=== PATIENT | female | born 1970 | race Caucasian/White ===

== ENCOUNTER 2019-03-25 11:24 | Outpatient (CLI) | payer MEDICARE, MEDICAID, SELFPAY ==
--- NOTE | 2019-03-25 11:36 | EST_ITS ---
Patient Info Name: Delia Lowe Age: 48 years : 1970 Gender: Female Ht: 59 in Wt: 208 lbs BSA: 2.04 m2 Exam Date: 03/25/2019 12:26 PM Exam Location: [facility] Patient Status: Outpatient Admit Date: 03/25/2019 Staff Ordering Physician: Mauricio Christopher DO Attending Provider: Mauricio Christopher DO Exam Type: CA stress dileep w NM Summary 1. 1. Negative lexiscan stress test for ischemic ST changes by ECG criteria. 2. 2. Stable hemodynamics throughout the test. 3. 3. Nuclear scan to follow and will be reported separately. Please correlate with it. 4. 4. Patient informed of the above results. Protocol: LEXISCAN Stress ECG Details Stage: REST Duration (min): 0 min : 55 sec HR (bpm): 83 SBP (mmHg): 112 DBP (mmHg): 78 Stage: REST Duration (min): 9 min : 18 sec HR (bpm): 85 SBP (mmHg): 112 DBP (mmHg): 78 Stage: STAGE 1 Duration (min): 0 min : 16 sec HR (bpm): 82 SBP (mmHg): 112 DBP (mmHg): 78 Stage: RECOVERY Duration (min): 0 min : 43 sec HR (bpm): 93 SBP (mmHg): 112 DBP (mmHg): 78 Stage: RECOVERY Duration (min): 1 min : 43 sec HR (bpm): 93 SBP (mmHg): 105 DBP (mmHg): 63 Stage: RECOVERY Duration (min): 2 min : 43 sec HR (bpm): 93 SBP (mmHg): 105 DBP (mmHg): 63 Stage: RECOVERY Duration (min): 3 min : 43 sec HR (bpm): 89 SBP (mmHg): 105 DBP (mmHg): 63 Stage: RECOVERY Duration (min): 4 min : 43 sec HR (bpm): 92 SBP (mmHg): 112 DBP (mmHg): 63 Stage: RECOVERY Duration (min): 5 min : 43 sec HR (bpm): 90 SBP (mmHg): 107 DBP (mmHg): 65 Stage: RECOVERY Duration (min): 6 min : 4 sec HR (bpm): 90 SBP (mmHg): 107 DBP (mmHg): 65 Rest HR: 85 bpm Peak HR: 95 bpm Rest Sys BP: 112 mmHg Peak Sys BP: 112 mmHg Max Pred HR: 170 bpm % Max Pred HR: 56 % Target HR: 145 bpm Max RPP: 10,640 bpm*mmHg Termination Reason: Completed protocol Cardiac Symptoms: None Total Time: 0 min : 16 sec Rest Navarrete BP: 78 mmHg Peak Navarrete BP: 63 mmHg Total Dose: 0.4 mg Resting ECG Sinus rhythm. Stress ECG No ST changes. Arrhythmias None. Report Signatures
--- NOTE | 2019-03-25 11:36 | ECHO_ITS ---
Patient Info Name: Delia Lowe Age: 48 years : 1970 Gender: Female Ht: 59 in Wt: 201 lbs BSA: 2.00 m2 HR: 90 bpm BP: 134 / 86 mmHg Heart Rhythm: Sinus Rhythm Technical Quality: Fair Exam Date: 03/25/2019 1:38 PM Exam Location: [facility] Patient Status: Outpatient Admit Date: 03/25/2019 Staff Ordering Physician: Mauricio Christopher DO Clinical Trials Specialist: Leroy Shin RDCS Attending Provider: Mauricio Christopher DO Exam Type: CA echo doppler color flow Study Info Complete two-dimensional, color flow and Doppler transthoracic echocardiogram is performed. History/Risk Factors Dyspnea. Summary 1. Left ventricular chamber dimension is normal. 2. Left ventricular systolic function is normal, estimated at 60-65%. 3. There is mildly increased left ventricular wall thickness. 4. The left ventricular diastolic function is grade I diastolic dysfunction. 5. E/e' 10 is mildly elevated. Left Ventricle E/e' 10 is mildly elevated. Left ventricular chamber dimension is normal. Left ventricular systolic function is normal, estimated at 60-65%. There is mildly increased left ventricular wall thickness. The left ventricular diastolic function is grade I diastolic dysfunction. Right Ventricle Right ventricular chamber dimension is normal. Right ventricular systolic function is normal. Left Atria Left atrial chamber dimension is normal. Right Atria Right atrial chamber dimension is normal. Aortic Valve The aortic valve is trileaflet. There is no aortic valve stenosis. There is no aortic valve regurgitation. Pulmonic Valve There is no pulmonic regurgitation. Mitral Valve There is no mitral valve stenosis. There is no mitral valve regurgitation. Tricuspid Valve There is no tricuspid valve regurgitation. Pericardium/Pleural There is no pericardial effusion. Inferior Vena Cava Normal inferior vena cava with >50% collapse upon inspiration consistent with normal right atrial pressure, 5 mmHg. Aorta The aortic root size at the sinus of Valsalva is normal. Left Ventricular Outflow Tract Name Value Normal LVOT 2D LVOT Diameter 2.0 cm LVOT Doppler LVOT Peak Velocity 106 cm/s LVOT Peak Gradient 4 mmHg LVOT Mean Gradient 2 mmHg LVOT VTI 17 cm LVOT VTI/AV VTI Ratio 0.9 LVOT Stroke Volume 54 ml Mitral Valve Name Value Normal MV Doppler MV Decel Hamilton 172 cm/s2 MV PHT 90 ms MV Area (PHT) 2.5 cm2 4.0-5.0 MV Diastolic Function MV E Peak Velocity 53 cm/s MV A Peak Velocity
== END 2019-03-25 11:25 | disposition home or self-care (01) ==
LOC: CHSIMG 11:27
PROVIDERS: Visit Provider Internal Medicine Cardiovascular Disease
DX: R07.9 Chest pain, unspecified (principal); R06.09 Other forms of dyspnea
CPT/HCPCS: 78452; 93017; 93306; A9502; J2785

== ENCOUNTER 2023-11-22 14:19 | Outpatient (RCR) | payer OTHER, SELFPAY ==
--- NOTE | 2023-11-22 15:05 | PTOPEVAL1 ---
Assessment and note entered by Crow Preston Evaluation Information Assessment Status Evaluation Diagnosis Multiple sclerosis ICD-10 Condition Codes (PT) M25.571 Onset 11/21/2009 Subjective Information Pt. reports she has been using the same power wheelchair for over 14 years. She states that her current power wheelchair cannot run and has broken parts. She reports that she cannot walk long distances and relies on her chair to get into the community. She states that she has a caregiver at home 6 hours a day. She states that she can walk short distances. She reports that she has had several falls in the past 6 months, however when talking with her caregiver she reports that it has been almost a year since the patient last fell. Reported Pain Level Pain Score 7: Self Report Assessment PT Clinical Summary Objective data is provided on the Seating/Mobility Evaluation form. Refer to assessment on the form regarding patient status. These treatments will address the objective and functional deficits as defined above. The patient will be advanced safely and appropriately in order for the patient to progress towards his/her prior level of function. Additional exercises will be introduced and as well as a comprehensive home exercise program upon discharge, if needed, ?to ensure carryover of functional gains achieved in the clinic. This treatment plan has been reviewed and agreement upon by the patient.
== END 2023-11-22 15:00 | disposition home or self-care (01) ==
LOC: CHSPT 14:19
PROVIDERS: Visit Provider Family Medicine
DX: M79.671 Pain in right foot (principal); L02.412 Cutaneous abscess of left axilla; G35 Multiple sclerosis
CPT/HCPCS: 97162

== ENCOUNTER 2025-02-04 15:33 | Outpatient (CLI) | payer OTHER, SELFPAY ==
--- NOTE | ~2025-02-04 | XR_ITS ---
XR ankle LT min 3V 02/04/2025 15:58 INDICATION: Left ankle pain. PROCEDURE: 4 views left ankle COMPARISON: No prior studies for comparison. FINDINGS: Fracture, dislocation or subluxation is not identified. There is an old avulsion fracture distal aspect of the fibula. Mild soft tissue swelling laterally. Small degenerative calcaneal enthesophyte. No foreign bodies are identified. IMPRESSION: 1: NO ACUTE BONE OR JOINT ABNORMALITY IDENTIFIED. Reviewed, dictated and finalized at location O. 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
--- NOTE | ~2025-02-04 | XR_ITS ---
[XR ribs LT 2V w CXR 2V ] INDICATION: Left rib pain TECHNIQUE: Frontal projection of the upper left ribs, frontal projection of the lower left ribs, oblique projection of all the left ribs, frontal and lateral inspiratory chest x-ray for interpretation. FINDINGS: There are no displaced rib fractures identified. There are no soft tissue abnormality seen. There is bibasilar atelectasis. No focal pneumonia, edema, significant effusion or pneumothorax. IMPRESSION: 1:No acute displaced rib fractures. 2:Bibasilar atelectasis. Reviewed, dictated and finalized at location O. DINNER
--- OUTSIDE RECORDS SUMMARY | 2025-02-04 15:39 | XMS_ITS | Patient Health Record ---
Author Organization [facility] Address [address] [place], [place] [id number] Care Team Providers Care Office Communication Professor Name Role Phone ARNALDO CHILDRESS Unavailable [phone] Hao Banks Unavailable Unavailable Reason For Referral No Information Medications Medication SIG (Take, Route, Frequency, Duration) Notes Start Date End Date Status sennosides, LONGTERM 25 MG Oral Tablet ORAL sennosides, LONGTERM 25 MG Oral TabletOriginal Medicationsennosides, LONGTERM 25 MG Oral Tablet *Reorder from [facility] for eRx and Interaction Alerts* 3 Active Docusate Sodium 250 MG Oral Capsule ORAL docusate sodium 250 MG Oral CapsuleOriginal Medicationdocusate sodium 250 MG Oral Capsule *Reorder from [facility] for eRx and Interaction Alerts* 3 Active topiramate 25 MG Oral Capsule ORAL topiramate 25 MG Oral CapsuleOriginal Medicationtopiramate 25 MG Oral Capsule *Reorder from [facility] for eRx and Interaction Alerts* 3 Active pregabalin 100 MG Oral Capsule [Lyrica] ORAL pregabalin 100 MG Oral Capsule [Lyrica]Original Medicationpregabalin 100 MG Oral Capsule [Lyrica] *Reorder from [employer] for eRx and Interaction Alerts* 3 Active pregabalin 300 MG Oral Capsule [Lyrica] ORAL pregabalin 300 MG Oral Capsule [Lyrica]Original Medicationpregabalin 300 MG Oral Capsule [Lyrica] *Reorder from [facility] for eRx and Interaction Alerts* 3 Active acetaminophen 325 MG / hydrocodone bitartrate 10 MG Oral Tablet ORAL acetaminophen 325 MG / hydrocodone bitartrate 10 MG Oral TabletOriginal Medicationacetaminophen 325 MG / hydrocodone bitartrate 10 MG Oral Tablet *Reorder from [facility] for eRx and Interaction Alerts* 3 Active aspirin 81 MG Oral Tablet ORAL aspirin 81 MG Oral TabletOriginal Medicationaspirin 81 MG Oral Tablet *Reorder from [facility] for eRx and Interaction Alerts* 3 Active glipiZIDE 5 MG Oral Tablet ORAL glipizide 5 MG Oral TabletOriginal Medicationglipizide 5 MG Oral Tablet *Reorder from [facility] for eRx and Interaction Alerts* 3 Active 24 HR darifenacin 15 MG Extended Release Oral Tablet [Enablex] ORAL 24 HR darifenacin 15 MG Extended Release Oral Tablet [Enablex]Original [id number] HR darifenacin 15 MG Extended Release Oral Tablet [Enablex] *Reorder from [facility] for eRx and Interaction Alerts* 3 Active atorvastatin 40 MG Oral Tablet ORAL atorvastatin 40 MG Oral TabletOriginal Medicationatorvastatin 40 MG Oral Tablet *Reorder from [facility] for eRx and Interaction Alerts* 3 Active diazepam 10 MG Oral Tablet [Valium] ORAL diazepam 10 MG Oral Tablet [Valium]Original Medicationdiazepam 10 MG Oral Tablet [Valium] *Reorder from [facility] for eRx and Interaction Alerts* 3 Active ergocalciferol 1.25 MG Oral Capsule ORAL ergocalciferol 1.25 MG Oral CapsuleOriginal Medicationergocalciferol 1.25 MG Oral Capsule *Reorder from [facility] for eRx and Interaction Alerts* 3 Active Social History Social History Additional Details Category Social Info Options Details Migrated Social History Migrated Social History History of tobacco use : Current every day smoker , Smoking Status : Current every day smoker Plan Of Treatment No Information Insurance Providers Payer Name Payer Address Payer Phone Subscriber Number Group Number Insured Name Patient Relationship to Insured Coverage Start Date Coverage End Date Medicare Part B [facility] [address] [place] [phone] [id number] ARON COREAS Self - patient is the insured
--- OUTSIDE RECORDS SUMMARY | 2025-02-04 15:39 | XMS_ITS | Clinical Summary ---
Author Organization [facility] Address [address] [place] [address] Care Team Providers Care Stoner Hand Name Role Phone Marry Arndt MD Primary Care Provider Allergies Active Allergy Reactions Criticality Noted Date Comments Fluoxetine Marax Unknown 05/01/2024 Penicillins Medications nitroglycerin (NITROSTAT) 0.[address] 1 tablet by sublingual route at the 1st sign of attack; may repeat every 5 min until relief; if pain persists after 3 tablets in 15 min, prompt medical attention is recommended 0 0 3 Active aspirin 81 mg tablet take 1 tablet (81MG) by oral route every day 0 2 Active Additional Information Patient not taking.Reported on 10/24/2024 vitamin E (AQUASOL E) 1,000 unit capsule Take 1 capsule (1,000 Units total) by mouth daily Active cholecalcifero l (VITAMIN D3) 1,000 unit capsule Take 9 capsules (9,000 Units total) by mouth daily. 1 capsule 7 Active Additional Information Patient taking differently: 5,000 Unitsoral Daily, Reported on 10/24/2024 omeprazole (PriLOSEC) 40 mg capsule Take 1 capsule (40 mg total) by mouth daily 5 Active famotidine (PEPCID) 20 mg tablet Take 1 tablet (20 mg total) by mouth 2 (two) times a day 360 Zantac Active OneTouch Verio test strips strip as needed 5 Active gabapentin (NEURONTIN) 600 mg tablet Take 1 tablet (600 mg total) by mouth 3 (three) times a day 5 Active OneTouch Delica Plus Lancet 33 gauge misc 5 Active naproxen (ANAPROX DS) 550 mg tablet as needed 5 Active SUMAtriptan (IMITREX) 50 mg tablet Take 1 tablet (50 mg total) by mouth as needed 5 Active hydrOXYzine (ATARAX) 25 mg tablet Take 1 tablet (25 mg total) by mouth nightly Active dicyclomine (BENTYL) 20 mg tablet Take 1 tablet (20 mg total) by mouth every 6 (six) hours 5 Active ondansetron (ZOFRAN) 4 mg tablet Take 1 tablet (4 mg total) by mouth every 8 (eight) hours as needed 5 Active Mounjaro 7.5 mg/0.5 mL pen injector injection Inject 0.5 mL (7.5 mg total) under the skin every 7 days 5 Active atorvastatin (LIPITOR) 80 mg tablet Take 1 tablet (80 mg total) by mouth daily 5 Active escitalopram (LEXAPRO) 20 mg tablet Take 1 tablet (20 mg total) by mouth daily 5 Active HYDROcodone-ac etaminophen (NORCO) 7.5-325 mg per tablet Take 1 tablet by mouth 3 times a day 5 Active lamoTRIgine (LaMICtal) 150 mg tablet Take 1 tablet (150 mg total) by mouth daily 5 Active baclofen (LIORESAL) 10 mg tablet Take 1 tablet (10 mg total) by mouth nightly Active modafiniL (PROVIGIL) 200 mg tabletIndicati ons:Multiple sclerosis TAKE 1 TABLET BY MOUTH EVERY MORNING AND 1/2 TABLET AT NOON 135 tablet 3 5 Active modafiniL (PROVIGIL) 200 mg tabletIndicati ons:Multiple sclerosis TAKE 1 TABLET BY MOUTH EVERY MORNING AND 1/2 TABLET AT NOON 135 tablet 3 5 01/24/20 25 Discontin ued(Reord er) Active Problems Problem Noted Date Diagnosed Date Obstructive sleep apnea, adult 10/25/2024 Morbid obesity with BMI of 40.0-44.9, adult 03/17 Assessment & Plan (04/10/2019 4:05 PM SENIOR VICE PRESIDENT AND CHIEF INFORMATION OFFICER): Exercise Weight loss encouraged. Lumbosacral radiculopathy 02/02/2018 Assessment & Plan (04/10/2019 4:04 PM SENIOR VICE PRESIDENT AND CHIEF INFORMATION OFFICER): Need MRI of lumbosacral spine images to review Lyrica 300 mg b.i.d. Assessment & Plan (10/05/2018 3:59 PM CDT): Lyrica 300mg daily Discussed weight loss and nutrition Assessment & Plan (02/02/2018 6:58 AM SENIOR VICE PRESIDENT AND CHIEF INFORMATION OFFICER): Need MRI of lumbosacral spine report/images to review Pain management evaluation Lyrica 300 mg b.i.d. High risk medication use 06/05/2017 Vitamin D deficiency 06/05/2017 Encounter for screening for other viral diseases 06/05/2017 Generalized tonic-clonic seizure 12/27/2016 Assessment & Plan (04/10/2019 4:01 PM SENIOR VICE PRESIDENT AND CHIEF INFORMATION OFFICER): Topamax 300mg daily Resume Lamictal. Lamictal 50 mg twice a day prescribed. Assessment & Plan (10/05/2018 3:59 PM CDT): Topamax 300mg daily Lamictal increased per patient to 100mg BID per psychiatry Assessment & Plan (02/02/2018 6:55 AM SENIOR VICE PRESIDENT AND CHIEF INFORMATION OFFICER): Topamax 100 mg AM/200 mg PM Lamictal 50 mg BID Assessment & Plan (06/05/2017 11:33 AM CDT): Topamax 100 mg AM/200 mg PM Lamictal 50 mg BID Keppra 500 mg BID. If Lamictal dose raised by psychiatrist, Keppra dose could be weaned. Assessment & Plan (12/31/2016 9:16 PM SENIOR VICE PRESIDENT AND CHIEF INFORMATION OFFICER): Topamax 100 mg AM/200 mg PM Lamictal 50 mg BID Keppra 500 mg BID. If Lamictal dose raised by psychiatrist, Keppra dose could be weaned. 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 Assessment & Plan (04/10/2019 4:01 PM SENIOR VICE PRESIDENT AND CHIEF INFORMATION OFFICER): Lamictal 50 mg BID restart Off Geodon Psychiatry follow-up Assessment & Plan (10/05/2018 4:00 PM CDT): Geodon 40mg now daily per patient Lamictal 100mg BID per patient Continue following psychiatry Assessment & Plan (02/02/2018 6:56 AM SENIOR VICE PRESIDENT AND CHIEF INFORMATION OFFICER): Lamictal 50 mg BID Geodon Psychiatry follow-up Assessment & Plan (06/05/2017 11:34 AM CDT): Lamictal 50 mg BID Geodon Continue per Psychiatry follow-up Assessment & Plan (12/27/2016 1:36 PM SENIOR VICE PRESIDENT AND CHIEF INFORMATION OFFICER): Lamictal 50 mg BID Geodon Psychiatry follow-up Gastroesophageal reflux disease without esophagi tis 01/29/2015 Diarrhea 11/18/2013 Migraine with aura and witho ut status migrainosus, not intractable 08/07/2013 Overview (2016): Migraine with aura Assessment & Plan (04/10/2019 4:00 PM SENIOR VICE PRESIDENT AND CHIEF INFORMATION OFFICER): Topamax 100 mg in morning and 200 mg at night Fioricet as needed Assessment & Plan (10/05/2018 3:59 PM CDT): She is on Topamax 300mg nightly. We discussed changing her dose to 100mg AM and 200mg PM for possible better coverage of her migraines Discussed CGRP receptor medications. She wanted to wait at this time Assessment & Plan (02/02/2018 6:54 AM SENIOR VICE PRESIDENT AND CHIEF INFORMATION OFFICER): Topamax 100 mg in morning and 200 mg at night Fioricet with codeine p.r.n. Assessment & Plan (06/05/2017 11:34 AM CDT): Topamax 100 mg AM/200 mg PM Fioricet with codeine prn Assessment & Plan (12/31/2016 9:12 PM SENIOR VICE PRESIDENT AND CHIEF INFORMATION OFFICER): Topamax 100 mg AM/200 mg PM Fioricet with codeine prn Diabetes mellitus 06/29/2013 Overview (05/18/2016): DM (diabetes mellitus) Atherosclerosis of coronary artery 06/29/2013 Overview (2016): CAD (coronary artery disease) Hypercholesterolemia 06/29/2013 Overview (2016): Hypercholesteremia Hinojosa's esophagus 08/20/2010 Hypertension 07/02/2008 Neurogenic bowel 07/02/2008 Neurogenic bladder 07/02/2008 Assessment & Plan (04/10/2019 4:04 PM SENIOR VICE PRESIDENT AND CHIEF INFORMATION OFFICER): Solifenacin 10 mg daily Assessment & Plan (10/05/2018 4:00 PM CDT): Vesicare 10mg daily Assessment & Plan (02/02/2018 6:58 AM SENIOR VICE PRESIDENT AND CHIEF INFORMATION OFFICER): VESIcare 10 mg daily Multiple sclerosis, relapsing-remitting 12/28/19 Overview (05/25/2017): Description: - appears stable on Betaseron. Labs as noted above. Nabferon (-) 12/28/07. Last MRI 07-30-07. (07-02-08) Assessment & Plan (04/10/2019 3:59 PM SENIOR VICE PRESIDENT AND CHIEF INFORMATION OFFICER): Tecfidera 240 mg twice a day. Became AYDEE virus antibody positive with index 3.76 on Tysabri in May 2017. Ocrevus was recommended, but patient declined. Provigil 200 mg a.m. and 100 mg 3:00 p.m. Baclofen Lyrica 300 mg twice a day Vit D3 6000 IU daily Chronically high WBC; hematology evaluation in past. MRI of the brain and cervical spine ordered for 3rd time. Importance to adherence to MRI imaging discussed especially since at risk for rebound activity off Tysabri. Assessment & Plan (10/05/2018 4:01 PM CDT): Tecfidera. Reviewed risks including PML and hepatotoxicity. Lab work today. Discussed eating before taking medication to help with GI symptoms MRI of the brain and cervical spine reordered Baclofen 20mg TID prn modafanil 200mg daily prn for fatigue Left resting hand/finger splint for 3rd and 4th fingers for night time Exercise encouraged and discussed as tolerated as well as good nutrition discussed Power wheelchair is medically necessary for Delia to complete ADLs outside the home due to motor fatigue from MS as well as lower back pain with lumbosacral radiculopathy. Follow up with Dr. Montoya in 6 months Assessment & Plan (02/02/2018 6:53 AM SENIOR VICE PRESIDENT AND CHIEF INFORMATION OFFICER): Tecfidera 240 mg twice a day. Became AYDEE virus antibody positive on Tysabri in May 2017. Ocrevus was recommended, but patient declined. Provigil, Baclofen Lyrica 300 mg twice a day Vit D3 6000 IU daily Exercise, weight loss Chronically high WBC; hematology evaluation in past. Assessment & Plan (06/05/2017 11:29 AM CDT): Long discussion regarding MS, risk of disease and Ocrevus. Discussed Ocrevus. Risks include potential infusion reactions, potential increase risk of infection including respiratory, herpes and PML, potential increased risk of malignancy such as breast cancer. Patient risk adversive and very tearful regarding infusion therapy. Really wants to discuss option of oral therapy. She has diabetes, so Gilenya not a great option. Risks and benefits of Tecfidera discussed including flushing, n/v/d, hepatotoxicity, harm, low white count, and serious infection including PML. She would like to continue with Tecfidera if OK with Dr. Montoya. Can increase baclofen to 15-20mg due to finger curling. Please let us know in 1- 2 weeks to discuss if it is helping. Blood work ordered for today Assessment & Plan (12/31/2016 9:16 PM SENIOR VICE PRESIDENT AND CHIEF INFORMATION OFFICER): Darwin. Risks discussed incl PML. Provigil, Vesicare Baclofen, Lyrica Vit D3 6000 IU daily Exercise, weight loss Chronically high WBC; hematology evaluation in past. MRI brain May 2018 Resolved Problems Problem Noted Date Diagnosed Date Resolved Date Other fatigue 06/05/2017 02/02/2018 Anaclitic depression 07/02/2008 020 Encounters Date Type Department Care Team Description 01/27/2025 12:00 PM SENIOR VICE PRESIDENT AND CHIEF INFORMATION OFFICER Infusion [facility] [address] [address] Multiple sclerosis, relapsing-remitting (Primary Dx) 01/23/2025 Telephone [facility] in [address] [address] Nick Dobson [facility] 01/27/2025 01/20/2025 Telephone [facility] [address] [facility] [address] [address] Arely Vila, shrimper Reminder- [facility] 01/08/2025 Telephone [facility] in [address] [address] Niles Montoya MD 11/28/2024 Results Follow-Up [facility] [address] [place] [address] [address] [address] Niles Montoya MD MRI Brain W WO Contrast, MRI Cervical Spine W WO Contrast 11/16/2024 2:04 PM CDT - 11/16/2024 11:59 PM CDT Hospital Encounter [facility] - Imaging [address] [place] [address] Multiple sclerosis Discharge Disposition: Discharge to home or self care 11/16/2024 2:04 PM CDT - 11/16/2024 11:59 PM CDT Hospital Encounter [facility] - Imaging [address] [place] [address] Multiple sclerosis Discharge Disposition: Discharge to home or self care from Last 3 Months Surgical History Surgery Date Site/Laterality Comments OTHER SURGICAL HISTORY PTCA/stent OTHER SURGICAL HISTORY Umbilical hernia repair twice Medical History Medical History Date Comments Hx Other Medical lumbar disc dis ease Type 2 diabetes mellitus Diabete s type 2 Hepatic cirrhosis (HCC) Cirrhosi s of liver Hx Other Medical Obstructive Sle ep Apnea Hx Other Medical narcolepsy Hypertension Hypertension Fibrositis Fibromyalgia Depression Depression Hx Other Medical CAD Hypercholesterolemia High choles terol Family History Medical History Relation Name Comments Car Accident Father 2 MVA; Cause of D eath: MVA Diabetes Mother 2 Diabetes mellit us; Heart attack Mother 2 Myocardial infa rction; Hyperlipidemia Mother 2 hypercholeste rolemia; Hypertension Mother 2 Hypertension; Relation Name Status Comments Father 1 (Age 66) Father 2 Mother 1 Alive Mother 2 Social History Tobacco Use Types Packs/Day Years Used Date Smoking Tobacco: Heavy Smoker Smokeless Tobacco: Current Tobacco Cessation:Ready to Q uit: Not Asked; Counseling Given: Not Answered Comments:Smoking History Packs/day: 1.5 Packs Alcohol Use Standard Drinks/Week Comments No 0 (1 standard drink = 0.6 oz pur e alcohol) Comments No Sex and Gender Information Value Date Recorded Sex Assigned at Not on file Legal Sex Female 12:28 AM SENIOR VICE PRESIDENT AND CHIEF INFORMATION OFFICER Gender Identity Not on file Sexual Orientation Not on file Last Filed Vital Signs Vital Sign Reading Time Taken Comments Blood Pressure 132/66 01/27/2025 2:30 PM SENIOR VICE PRESIDENT AND CHIEF INFORMATION OFFICER Pulse 99 01/27/2025 2:30 PM SENIOR VICE PRESIDENT AND CHIEF INFORMATION OFFICER Temperature 36 C (96.8 F) 01/27/2025 2:30 PM SENIOR VICE PRESIDENT AND CHIEF INFORMATION OFFICER Respiratory Rate 18 08/27/2024 1:55 PM CDT Oxygen Saturation 99% 01/27/2025 2:30 PM SENIOR VICE PRESIDENT AND CHIEF INFORMATION OFFICER Inhaled Oxygen Concentration - - Weight 89.4 kg (197 lb 3.2 oz) 10/24/2024 2:22 P M CDT Height 149.9 cm (4' 11) 10/24/2024 2:22 PM CDT Body Mass Index 39.83 10/24/2024 2:22 PM CDT Plan of Treatment Health Maintenance Due Date Last Done Comments Albumin Creatinine Ratio, Urine 1968 Breast Cancer Screening-Mammogram 1968 Cervical Cancer Screening 1968 Colon Cancer Screening-Colonoscopy 1968 Depression Screening 1968 Hemoglobin A1C 1968 Dilated Eye Exam 1968 Foot Exam 1968 Regular Well Visit/Exam 18-64 1986 Pneumococcal vaccine <65 (2 of 2 - PCV) 11/01/2012 11/02/2011 Lipid Panel 05/27/2016 05/28/2015 DTaP/Tdap/Td Vaccine (3 - Td or Tdap) 11/01/2021 11/02/2011, 02/14/2008 Influenza Vaccine (#1) 2024 7, 01/03/2013, 11/02/2011 eGFR 01/21/2026 01/21/2025, 04/13, 04/10/2019, Additional history exists Hepatitis B Screening Completed 05/01/2024 Hepatitis C Screening Completed 05/01/2024 Zoster Vaccine Completed 10/02/2024, 07/22/2024 Procedures Procedure Name Priority Date/Time Associated Diagnosis Comments LYMPHOCYTE SUBSET PANEL 1 Routine 01/21/2025 10:16 AM SENIOR VICE PRESIDENT AND CHIEF INFORMATION OFFICER Multiple sclerosis, relapsing-remittin g High risk medication use IMMUNOGLOBULIN PROFILE Routine 10:16 AM SENIOR VICE PRESIDENT AND CHIEF INFORMATION OFFICER Multiple sclerosis, relapsing-remittin g High risk medication use CBC WITH AUTO DIFFERENTIAL Routine 01/21/2025 10:15 AM SENIOR VICE PRESIDENT AND CHIEF INFORMATION OFFICER Multiple sclerosis, relapsing-remittin g High risk medication use COMPREHENSIVE METABOLIC PANEL Routine 01/21/2025 10:15 AM SENIOR VICE PRESIDENT AND CHIEF INFORMATION OFFICER Multiple sclerosis, relapsing-remittin g High risk medication use MRI BRAIN W WO CONTRAST Routine 11/17/19 4:23 PM CDT Multiple sclerosis MRI CERVICAL SPINE W WO CONTRAST Routine 11/16/2024 3:59 PM CDT Multiple sclerosis HEPATITIS PANEL, ACUTE Routine 5 4:12 PM CDT Multiple sclerosis (HCC) PLASMA LIPID PANEL Routine 05/28/2015 9: 02 AM CDT from Last 3 Months or Most Recently Relevant to Health Maintenance Results * (ABNORMAL) Immunoglobulin profile (01/21/2025 10:16 AM SENIOR VICE PRESIDENT AND CHIEF INFORMATION OFFICER) [facility] [address] Immunoglobulin A 450(H) 47 - 310 mg/dL [facility] Immunoglobulin G 1,076 600 - 1,640 mg/dL [facility] Immunoglobulin M 167 50 - 300 mg/dL [facility] Blood 01/21/2025 10:1 6 AM SENIOR VICE PRESIDENT AND CHIEF INFORMATION OFFICER 01/22/2025 2:21 AM SENIOR VICE PRESIDENT AND CHIEF INFORMATION OFFICER Narrative [facility] - 01/23/2025 7:54 AM SENIOR VICE PRESIDENT AND CHIEF INFORMATION OFFICER FASTING:NO FASTING: NO us Niles Montoya MD LAB BLOOD ORDERABLES Final Re sult Performing Organization Address City/State/[facility] Co de Phone Number [facility] [address] [place] [address] * (ABNORMAL) Lymphocyte subset panel 1 (01/21/2025 10:16 AM SENIOR VICE PRESIDENT AND CHIEF INFORMATION OFFICER) [facility] [address] % CD3 77 57 - 85 % [facility] Absolute CD3+ cells 2,155 840 - 3,060 cells/uL [facility] CD4 % 52 30 - 61 % [facility] CD4 cells 1,466 490 - 1,740 cells/uL [facility] % CD8 27 12 - 42 % [facility] Absolute CD8+ cells 781 180 - 1,170 cells/uL [facility] Nettie/Suppres sor ratio 1.88 0.86 - 5.00 [facility] % CD16+CD56 23 4 - 25 % [facility] Absolute NK cells (CD16+CD56+RABIA LS) 642 70 - 760 cells/uL [facility] CD19 pct 6 - 29 % [facility] Comment:Less than 1 Absolute CD19+ CELLS <20(L) 110 - 660 cells/uL [facility] Lymphocytes, abs 2,804 850 - 3,900 cells/uL [facility] Blood 01/21/2025 10:1 6 AM SENIOR VICE PRESIDENT AND CHIEF INFORMATION OFFICER 01/22/2025 2:21 AM SENIOR VICE PRESIDENT AND CHIEF INFORMATION OFFICER Narrative [facility] - 01/23/2025 7:54 AM SENIOR VICE PRESIDENT AND CHIEF INFORMATION OFFICER FASTING:NO FASTING: NO us Niles Montoya MD LAB BLOOD ORDERABLES Final Re sult [facility] [address] [place] [address] * (ABNORMAL) CBC with auto differential (01/21/2025 10:15 AM SENIOR VICE PRESIDENT AND CHIEF INFORMATION OFFICER) WBC 11.1(H) 3.8 - 10.8 Thousand/u L [facility] RBC, POC 4.88 3.80 - 5.10 Million/uL [facility] Hgb 15.9(H) 11.7 - 15.5 g/dL [facility] Hct 49.2(H) 35.9 - 46.0 % [facility] MCV 100.8 81.4 - 101.7 fL [facility] MCH 32.6 27.0 - 33.0 pg [facility] MCHC 32.3 31.6 - 35.4 g/dL [facility] Rdw 13.2 11.0 - 15.0 % [facility] Platelets 280 140 - 400 Thousand/u L [facility] MPV 12.7(H) 7.5 - 12.5 fL [facility] Neutrophils, abs 7,393 1,500 - 7,800 cells/uL [facility] Lymphocytes, abs 2,553 850 - 3,900 cells/uL [facility] Monocyte abs 844 200 - 950 cells/uL [facility] Eosinophils, abs 255 15 - 500 cells/uL [facility] Basophils, abs 56 0 - 200 cells/uL [facility] Neutrophils 66.6 % [facility] Lymphocyte pct 23.0 % [facility] Monocytes 7.6 % [facility] Eosinophils 2.3 % [facility] Basophils 0.5 % [facility] Blood 01/21/2025 10:1 5 AM SENIOR VICE PRESIDENT AND CHIEF INFORMATION OFFICER 01/22/2025 2:12 AM SENIOR VICE PRESIDENT AND CHIEF INFORMATION OFFICER Narrative [facility] - 01/22/2025 6:02 AM SENIOR VICE PRESIDENT AND CHIEF INFORMATION OFFICER FASTING:NO FASTING: NO us Niles Montoya MD LAB BLOOD ORDERABLES Final Re sult [facility] [address] [place] [address] * Comprehensive metabolic panel (01/21/2025 10:15 AM SENIOR VICE PRESIDENT AND CHIEF INFORMATION OFFICER) Glucose 136 65 - 139 mg/dL [facility] Comment: Non-fasting reference interval BUN 9 7 - 25 mg/dL [facility] Creatinine 0.75 0.50 - 1.03 mg/dL [facility] eGFR 93 > OR = 60 mL/min/1.7 3m2 [facility] BUN/creat ratio SEE NOTE: 6 - 22 (calc) [facility] Comment: Not Reported: BUN and Creatinine are within reference range. Sodium 141 135 - 146 mmol/L [facility] Potassium, pl 4.0 3.5 - 5.3 mmol/L [facility] Chloride 103 98 - 110 mmol/L [facility] CO2 26 20 - 32 mmol/L [facility] Calcium 8.8 8.6 - 10.4 mg/dL [facility] Protein, sr 6.7 6.1 - 8.1 g/dL [facility] Albumin 3.6 3.6 - 5.1 g/dL [facility] GLOBULIN 3.1 1.9 - 3.7 g/dL (calc) [facility] Alb/glob ratio 1.2 1.0 - 2.5 (calc) [facility] Bilirubin, total 0.4 0.2 - 1.2 mg/dL [facility] Alk phos 126 37 - 153 U/L [facility] AST 21 10 - 35 U/L [facility] ALT (SGPT) 16 6 - 29 U/L [facility] Blood 01/21/2025 10:1 5 AM SENIOR VICE PRESIDENT AND CHIEF INFORMATION OFFICER 01/22/2025 2:12 AM SENIOR VICE PRESIDENT AND CHIEF INFORMATION OFFICER Narrative [facility] - 01/22/2025 6:02 AM SENIOR VICE PRESIDENT AND CHIEF INFORMATION OFFICER FASTING:NO FASTING: NO us Niles Montoya MD LAB BLOOD ORDERABLES Final Re sult [facility] [address] [place] [address] * MRI Brain W WO Contrast (11/16/2024 4:23 PM CDT) Anatomical Region Laterality Modality Head and Neck N/A Magnetic Resonan ce 11/18/2024 9:54 AM CDT Impressions 11/18/2024 9:54 AM CDT 1. Multiple white matter lesions, some of which are new compared with prior MRI brain dated 06/02/2016. 2. Confluent periventricular lesions posteriorly are slightly larger in size compared with prior MRI brain. 3. No abnormal enhancement to suggest active demyelination. Electronically signed by: Simone Sandoval M.D. Narrative 11/18/2024 9:54 AM CDT MRI BRAIN W WO CONTRAST 11/16/2024 3:30 PM CLINICAL INDICATION: Multiple sclerosis. Assess for interval change. COMPARISON: MRI brain dated 06/02/2016. TECHNIQUE: Multiplanar multisequence MRI of the brain was performed without and with contrast. 19 mL of gadoterate meglumine was administered intravenously. A 3 Parisa magnet was used. FINDINGS: The ventricles and cortical sulci are stable in size and configuration. There is no acute infarct, mass/mass effect or midline shift. There are multiple subcortical, juxtacortical and periventricular white matter lesions, many of which have a confluent appearance. The signal intensities adjacent to the posterior horn of the lateral ventricles are mildly larger in size compared with prior MRI brain dated 06/02/2016. Increased FLAIR/T2 signal in the juxtacortical and subcortical white matter in the posterior right frontal lobe that extends to the callosal septal interface (series 6, image 14) is new compared with prior MRI brain dated 06/02/2016. An anterior left frontal lesion that extends to the callosal septal interface (series 6, image 24) is new. Atrophy of the corpus callosum is mildly worse. There are no abnormal areas of enhancement to suggest active demyelination. The basal cisterns are patent. The sellar and suprasellar structures are normal. There are no acute findings in the posterior fossa. There is preservation of normal flow voids in the major intracranial vessels. The paranasal sinuses are clear. There is a right mastoid effusion. There are no acute findings in the orbits. Procedure Note Simone Sandoval MD - 11/18/2024 MRI BRAIN W WO CONTRAST 11/16/2024 3:30 PM CLINICAL INDICATION: Multiple sclerosis. Assess for interval change. COMPARISON: MRI brain dated 06/02/2016. TECHNIQUE: Multiplanar multisequence MRI of the brain was performed without and with contrast. 19 mL of gadoterate meglumine was administered intravenously. A 3 Parisa magnet was used. FINDINGS: The ventricles and cortical sulci are stable in size and configuration. There is no acute infarct, mass/mass effect or midline shift. There are multiple subcortical, juxtacortical and periventricular white matter lesions, many of which have a confluent appearance. The signal intensities adjacent to the posterior horn of the lateral ventricles are mildly larger in size compared with prior MRI brain dated 06/02/2016. Increased FLAIR/T2 signal in the juxtacortical and subcortical white matter in the posterior right frontal lobe that extends to the callosal septal interface (series 6, image 14) is new compared with prior MRI brain dated 06/02/2016. An anterior left frontal lesion that extends to the callosal septal interface (series 6, image 24) is new. Atrophy of the corpus callosum is mildly worse. There are no abnormal areas of enhancement to suggest active demyelination. The basal cisterns are patent. The sellar and suprasellar structures are normal. There are no acute findings in the posterior fossa. There is preservation of normal flow voids in the major intracranial vessels. The paranasal sinuses are clear. There is a right mastoid effusion. There are no acute findings in the orbits. IMPRESSION: 1. Multiple white matter lesions, some of which are new compared with prior MRI brain dated 06/02/2016. 2. Confluent periventricular lesions posteriorly are slightly larger in size compared with prior MRI brain. 3. No abnormal enhancement to suggest active demyelination. Electronically signed by: Simone Sandoval M.D. us Niles Montoya MD IM MRI PROCEDURES Final Resu lt * MRI Cervical Spine W WO Contrast (11/16/2024 3:59 PM CDT) Anatomical Region Laterality Modality Spine N/A Magnetic Resonan ce 11/18/2024 9:54 AM CDT Impressions 11/18/2024 9:54 AM CDT 1. Motion degraded exam, which limits evaluation for small cervical spinal cord lesions. No definite cervical lesions are identified. 2. No abnormal areas of enhancement to suggest active demyelination. 3. C5-6 spondylosis. Electronically signed by: Simone Sandoval M.D. Narrative 11/18/2024 9:54 AM CDT MRI CERVICAL SPINE W WO CONTRAST 11/16/2024 2:30 PM CLINICAL INDICATION: Multiple sclerosis. Assess for interval change. COMPARISON: MRI cervical spine dated 07/06/2015. TECHNIQUE: Multiplanar multisequence MRI of the cervical spine was performed without and with contrast. 19 mL of gadoterate meglumine was administered intravenously. A 3 Parisa magnet was used. Multiple portions of the study are degraded by motion. FINDINGS: There is slight reversal of normal cervical lordosis. There is moderate loss of disc space height at C5-C6 that has worsened. There is no compression deformity or acute marrow signal abnormality. The prevertebral soft tissues are normal. There are no acute findings in the visualized soft tissues of the neck. No definite cervical spinal cord lesions are identified. However, evaluation is limited by motion. There are no abnormal areas of enhancement to suggest active demyelination. There is a small disc bulge at C5-6 that contributes to central and neural foraminal narrowing. Procedure Note Simone Sandoval MD - 11/18/2024 MRI CERVICAL SPINE W WO CONTRAST 11/16/2024 2:30 PM CLINICAL INDICATION: Multiple sclerosis. Assess for interval change. COMPARISON: MRI cervical spine dated 07/06/2015. TECHNIQUE: Multiplanar multisequence MRI of the cervical spine was performed without and with contrast. 19 mL of gadoterate meglumine was administered intravenously. A 3 Parisa magnet was used. Multiple portions of the study are degraded by motion. FINDINGS: There is slight reversal of normal cervical lordosis. There is moderate loss of disc space height at C5-C6 that has worsened. There is no compression deformity or acute marrow signal abnormality. The prevertebral soft tissues are normal. There are no acute findings in the visualized soft tissues of the neck. No definite cervical spinal cord lesions are identified. However, evaluation is limited by motion. There are no abnormal areas of enhancement to suggest active demyelination. There is a small disc bulge at C5-6 that contributes to central and neural foraminal narrowing. IMPRESSION: 1. Motion degraded exam, which limits evaluation for small cervical spinal cord lesions. No definite cervical lesions are identified. 2. No abnormal areas of enhancement to suggest active demyelination. 3. C5-6 spondylosis. Electronically signed by: Simone Sandoval M.D. Niles Montoya MD IM MRI PROCEDURES Final Resu lt * Hepatitis panel, acute Blood (05/01/2024 4:12 PM CDT) Hep A IgM Nonreactive Nonreactive Comment: Interpretive Data: If Hep A IgM Ab is reported as Equivocal, a new sample should be drawn in two weeks for testing. Current interpretive data was last revised on 19. Hep B core IgM Nonreactive Nonreactive [facility] Comment: Interpretive Data If HepB Core IgM Ab is reported as Equivocal, a new sample should be drawn in two weeks for testing. Current interpretive data was last revised on 19. Hep C Ab Nonreactive Nonreactive [facility] Comment: Interpretive Data Nonreactive: Antibodies to HCV not detected. Does NOT exclude the possibility of recent exposure to HCV. Equivocal: Equivocal for HCV antibodies. Supplemental molecular testing will be automatically performed to determine infection status in accordance with current CDC screening recommendations. Reactive: Positive for HCV antibodies. This may represent current or past HCV infection. Supplemental molecular testing will be automatically performed to determine current infection status in accordance with current CDC screening recommendations. Interpretive data was last revised on 2019. HepBsAg Nonreactive Nonreactive [facility] Blood 05/01/2024 4:12 PM CDT 05/01/2024 5:39 PM CDT us Niles Montoya MD LAB MICROBIOLOGY - GENERAL OR DERABLES Final Result Performing Organization Address [facility] Co de Phone Number [facility] [address] Department [place] [address] * (ABNORMAL) Plasma lipid panel (05/28/2015 9:02 AM CDT) Cholesterol 189 140 - 199 mg/dl HISTORICAL RESULTS Triglycerides 239(H) 20 - 150 mg/dl HISTORICAL RESULTS HDL 27(L) 40 - 60 mg/dl HISTORICAL RESULTS LDL 114(H) 65 - 100 mg/dl HISTORICAL RESULTS Comment: Desirable Borderline High CHOL < 200 200 - 239 >= 240 mg/dL TRIG < 150 150 - 199 >= 200 mg/dL HDL > 60 40 - 60 <= 40 mg/dL LDL < 100 130 - 159 >= 160 mg/dL Risk Assessment interpretation based on the August 2000 NCEP ATPIII guideline. Chol/HDL ratio 7.0(H) 0.0 - 4.9 HISTO RICAL RESULTS Plasma 05/28/2015 9:02 AM CDT Narrative HISTORICAL RESULTS - 05/28/2015 11:18 AM CDT fax to [phone] us Hao Banks Jr., MD LAB BLOOD ORDERABLES F inal Result Performing Organization Address City/[facility] Co de Phone Number HISTORICAL RESULTS from Last 3 Months or Most Recently Relevant to Health Maintenance Additional Health Concerns Infection Onset Date Last Indicated MDR gram neg/ESBL Comment:11/30/15 ESBL e coli in urine 12/02/2015 12/02/2015 Insurance AETNA [facility] [place] [facility] [place] [facility] [place] Care Teams Stoner Hand Relationship Specialty Start Date End Date Marry Arndt MD [address] [place] [id number] PCP - General Family Medicine 05/01/24
--- OUTSIDE RECORDS SUMMARY | 2025-02-04 15:39 | XMS_ITS | Clinical Summary ---
Author Organization [facility] Address Formerly [facility], [facility] [place] [address] Care Team Providers Care Car Varnisher Name Role Phone Emily Benitez MD Primary Care Provider [phone] Encounters Date Type Department Care Team Description 12/02/2024 Transcribe Orders [facility] Pre Access Team [address] [place] [address] Emily Benitez MD 11/15/2024 5:24 PM CDT - 11/15/2024 11:59 PM CDT Hospital Encounter [facility] [address] [place] [address] Emily Benitez MD Discharge Disposition: Home or Self Care (Routine Discharge) 11/15/2024 Travel from Last 3 Months Social History Tobacco Use Types Packs/Day Years Used Date Smoking Tobacco: Never Assessed Comments Unknown Sex and Gender Information Value Date Recorded Sex Assigned at Female 11/15/2024 5:18 PM CDT Legal Sex Female 9:59 PM CDT Gender Identity Not on file Sexual Orientation Not on file Plan of Treatment Health Maintenance Due Date Last Done Comments Cervical Cancer Screening Pa p Smear (Age 30 to 64) Every 3 Years 1968 Colorectal Cancer Screening Colonoscopy (10 Years) 1968 Annual Physical 05/21/1971 Hepatitis C 1986 Hepatitis B Vaccines (1 of 3 - 19+ 3-dose series) 05/21/1987 Cervical Cancer Screening Pa p with HPV Testing (Age 30 to 64) Every 5 Years 1998 Cervical Cancer Screening wi th HPV 1998 Mammogram Screening 2008 Pneumococcal Vaccine: 50+ Years (2 of 2 - PCV) 2018 11/02/2011 DTaP, Tdap and Td Vaccines ( 3 - Td or Tdap) 11/01/2021 11/02/2011, 02/14/2008 COVID-19 Vaccine (2024-2 6 season) 2024 Influenza Adult (#1) 2024 02/26/2016, 01/03/2013, 11/02/2011 Zoster Vaccines Completed 10/02/2024, 07/22/2024 Hepatitis A Vaccines Aged Out No long er eligible based on patient's age to complete this topic Meningococcal B Vaccine Aged Out No l onger eligible based on patient's age to complete this topic Meningococcal Vaccine Aged Out No nasima johnathan eligible based on patient's age to complete this topic RSV Immunizations Under 20 Months Aged Out No longer eligible b ased on patient's age to complete this topic Procedures Procedure Name Priority Date/Time Associated Diagnosis Comments XR HIP LT 2V Routine 11/15/2024 5:55 PM CDT Left hip pain from Last 3 Months Results * XR HIP LT 2V (11/15/2024 5:55 PM CDT) Anatomical Region Laterality Modality Hip Radiographic Cahrmaine ging 11/15/2024 6:30 PM CDT Impressions 11/15/2024 6:31 PM CDT IMPRESSION: No acute bony abnormalities. Ordered By: EMILY BENITEZ Interpreted By: Cristóbal Mazariegos MD, 11/15/2024 6:30 PM Narrative 11/15/2024 6:31 PM [address]T [address] [place] [address] Examination: XR HIP LT 2V Exam time: 11/15/2024 5:41 PM Clinical history: Patient has pain laterally posterior to the left hip following trauma. Comparison: No previous. Technique: 2 views. Findings: There is no malalignment. No acute bony abnormalities. Mild degenerative changes. Please correlate clinically. If the symptoms still persist and are unexplained recommend follow-up studies including if necessary with cross-sectional imaging. Procedure Note Cristóbal Mazariegos MD - 11/15/2024 [place] [address] [place] [address] Examination: XR HIP LT 2V Exam time: 11/15/2024 5:41 PM Clinical history: Patient has pain laterally posterior to the left hipfollowing trauma. Comparison: No previous. Technique: 2 views. Findings: There is no malalignment. No acute bony abnormalities. Milddegenerative changes. Please correlate clinically. If the symptoms still persist and areunexplained recommend follow-up studies including if necessary withcross-sectional imaging. IMPRESSION: No acute bony abnormalities. Ordered By: EMILY BENITEZ Interpreted By: Cristóbal Mazariegos MD, 11/15/2024 6:30 PM us Emily Benitez MD GENERAL IMAGING Final Resu lt from Last 3 Months Insurance [employer] MEDICARE Care Teams Car Varnisher Relationship Specialty Start Date End Date Emily Benitez MD [address] [place] [phone] PCP - General FAMILY PRACTICE 11/15/24
--- OUTSIDE RECORDS SUMMARY | 2025-02-04 15:39 | XMS_ITS ---
Author Organization Unknown Address [address] [place] [phone] Phone Care Team Providers Care Foundation Drill Operator Name Role Phone ELIZABETH Noe Attending Unavailable EMMANUEL Fuchs Primary Unavailable Immunization Immunization Date Status Additional Notes Code Code System pneumococcal polysaccharide PPV23 11/02/2011 Completed 33 CVX Tdap 02/14/2008 Completed 115 CVX Tdap 11/02/2011 Completed 115 CVX Influenza, split virus, trivalent, preservative 11/02/2011 Completed 141 CVX Influenza, split virus, trivalent, preservative 01/03/2013 Completed 141 CVX Influenza, split virus, quadrivalent, PF 02/26/2016 Completed 150 CVX Social History Type Status Start Date End Date Code Code Syst em Smoking History Current every day smoker [id number] SNOMED CT Sex Female Medications Medication Start Date End Date Route Frequency Dose Code Code System Medication Instructions Home Meds Omeprazole 40MG Oral Capsule, Delayed Release 05/12/2023 Unknown ORAL ONCE A DAY 40 MILLIGRAMS [id number] RxNorm TAKE 40 MILLIGRAMS ORAL ONCE A DAY HYDROcodone bitartrate-hernando taminophen 5MG-325MG Oral Tablet 05/12/2023 Unknown ORAL NEEDED 3 TIMES A DAY 1 unit(s) 305690 RxNorm TAKE 1 EACH ORAL NEEDED 3 TIMES A DAY Nitroglycerin 0.4MG Sublingual Tablet 05/12/2023 Unknown SUBLINGU AL DIRECTE D 0.[id number] 0.4 MILLIGRAMS SUBLINGUAL DIRECTED Atorvastatin Calcium 80MG Oral Tablet 05/12/2023 Unknown ORAL ONCE A DAY 80 MILLIGRAMS 270733 RxNorm TAKE 80 MILLIGRAMS ORAL ONCE A DAY glipiZIDE 5MG Oral Tablet 05/12/2023 Unknown ORAL ONCE A DAY 5 MILLIGRAMS 580438 RxNorm TAKE 5 MILLIGRAMS ORAL ONCE A DAY Tecfidera 240MG Oral Capsule, Delayed Release 05/12/2023 Unknown ORAL TWICE A DAY 240 MILLIGRAMS 3894610 RxNorm TAKE 240 MILLIGRAMS ORAL TWICE A DAY RANITIDINE 05/12/2023 Unknown ORAL ONCE A DAY 20 TABLET RxNorm TAKE 20 TABLET ORAL ONCE A DAY Hospital Discharge Instructions Should you have any questions prior to discharge, please contact a member of your healthcare team. If you have left the hospital and have any questions, please contact your primary care physician. Reason For Referral No Data Found Allergies and Adverse Reactions Allergy Substance Reaction Severity Start Date Concern Status Co de Code System PROZAC Active 56516 RxNorm PENICILLIN Active MARAX Active Plan of Treatment EGD/Colonoscopy 05/12/2023 Home Sleep Study Prep (89178) 5 Encounters Encounter Diagnosis Start Date Code Code Sys tem Diarrhea, unspecified 04/10/2024 SNOMED -CT Personal Care Team Section
--- OUTSIDE RECORDS SUMMARY | 2025-02-04 15:40 | XMS_ITS ---
Author Organization Unknown Address [address] [place] [phone] Phone Care Team Providers Care Sexual Health Physician Name Role Phone EMMANUEL Fuchs Attending Unavailable Immunization Immunization Date Status Additional Notes [...] em Smoking History Current every day smoker [id number] SNOMED CT Sex Female Medications Medication Start Date End Date Route Frequency Dose Code Code System Medication Instructions Home Meds Omeprazole 40MG Oral Capsule, Delayed Release 05/12/2023 Unknown ORAL ONCE A DAY 40 MILLIGRAMS [id number] RxNorm TAKE 40 MILLIGRAMS ORAL ONCE A DAY HYDROcodone bitartrate-hernando taminophen 5MG-325MG Oral Tablet 05/12/2023 Unknown ORAL NEEDED 3 TIMES A DAY 1 unit(s) 545071 RxNorm TAKE 1 EACH ORAL NEEDED 3 TIMES A DAY Nitroglycerin 0.4MG Sublingual Tablet 05/12/2023 Unknown SUBLINGU AL DIRECTE D 0.[address] 0.4 MILLIGRAMS SUBLINGUAL DIRECTED Atorvastatin Calcium 80MG Oral Tablet 05/12/2023 Unknown ORAL ONCE A DAY 80 MILLIGRAMS 798141 RxNorm TAKE 80 MILLIGRAMS ORAL ONCE A DAY glipiZIDE 5MG Oral Tablet 05/12/2023 Unknown ORAL ONCE A DAY 5 MILLIGRAMS 770574 RxNorm TAKE 5 MILLIGRAMS ORAL ONCE A DAY Tecfidera 240MG Oral Capsule, Delayed Release 05/12/2023 Unknown ORAL TWICE A DAY 240 MILLIGRAMS 6374386 RxNorm TAKE 240 MILLIGRAMS ORAL TWICE A [...] Status Co de Code System PROZAC Active 78352 RxNorm PENICILLIN Active MARAX Active Plan of Treatment EGD/Colonoscopy 05/12/2023 Home Sleep Study Prep (44219) 5 Encounters Encounter Diagnosis Start Date Code Code Sys tem Obstructive sleep apnea syndrome 01/28/2025 [id number] SNOMED-CT Personal Care Team Section Procedures Notes [facility] 02/01/2025 08:04 STUDY TYPE: HOME SLEEP TEST (UNATTENDED SLEEP STUDY) ADMITTING PROVIDER: EMILY BENITEZ DICTATING PROVIDER: [facility] PROCEDURE DATE: 01/28/2025 READING DATE: 02/01/2025 INDICATION FOR THE STUDY: Snoring. PATIENT DEMOGRAPHIC: 54-year-old female, weight 194 Lbs, height 60 in and BMI of 37.9 lb/in2. METHODS: Unattended Sleep Study was performed using a type III, 7 channel portable monitoring device (Wallix) with simultaneous recording of nasal flow, respiratory effort, snoring, body position, plethysmography, ECG/heart rate and oxygen saturation. FINDINGS: Sleep Summary: Total recording time 867 min. Total time in bed 867 min. Monitoring time 336 min. Cardiac Summary: Average heart rate was 79 BPM; highest heart rate was 87 BPM and lowest HR was 48 BPM. Oximetry saturation: average oxygen saturation was 86%, total number of desaturation was 96, desaturation index was 18 events/hr, lowest oxygen saturation was 75% and highest oxygen saturation was 97%. Respiratory summary: Patient had 90 obstructive apneas, 51 obstructive hypopneas, 10 central apnea and the total number of events was 151 events. AHI was 27. IMPRESSION: AHI of 27 is consistant with moderate sleep apnea. Patient had both obstructive and central events; however, central events represent only 8% of the total events. Test was done in recliner. RECOMMENDATIONS: It is recommended to discuss treatment options of moderate obstructive sleep apnea. Patient may benefit from autopap with pressure of 5-15CW or can have in-lab cpap titration study. General recommendation: Upper airway assessment for any anatomic narrowing or abnormal nasal passages or enlarged tonsils. Assessment of Thyroid function. Education about sleep apnea. Exercise regularly and work to lose weight if you are overweight. Avoid alcohol and other sedatives, particularly prior to sleep. Patient to avoid driving or operating heavy machinery until symptoms of excessive daytime sleepiness are controlled. If you smoke, quit smoking. Cigarette smoking can increase swelling in your airway making snoring and DANA worse. Have a sleep routine. Close follow up with your physician. Sridhar Cooper MD DIPLOMATE, COLOMBIAN BOARD OF SLEEP MEDICINE
== END 2025-02-04 15:34 | disposition home or self-care (01) ==
PROVIDERS: PCP Family Medicine; Visit Provider Physician Assistant
DX: M25.572 Pain in left ankle and joints of left foot (principal); R07.89 Other chest pain; J98.11 Atelectasis
CPT/HCPCS: 71046; 71100; 73610